=== PATIENT | male | born 1970 ===

== ENCOUNTER 2016-11-22 16:59 | Emergency (ER) | payer SELFPAY ==
[2016-11-22 17:14] VITALS: BP 126/85
--- NOTE | 2016-11-22 17:58 | UC ---
Skin Complaint HPI - HPI Summary HPI Summary: 46 male presents with complaints of left great toe pain, warmth, redness and discharge that began one weekend and has progressively worsened. Patient states he was cutting his toenail and ripped some skin off alone with it and since has had increasing discomfort. Patient thinks it is infected. He admits to a purulent discharge. He has DM and knows he is susceptible to infections. He has been soaking in Epsom salt which does give him relief. Has also tried applying neosporin to the area. Pain worsens when wearing tight shoes. Describes pain as throbbing. No other complaints at this time. No recent trauma or injury. Denies hx of gout or septic arthritis. Denies fever/chills that he is aware of. 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, neosporin Associated Signs & Symptoms: Positive: Negative Related History: Diabetes - Allergy/Home Medications Allergies/Adverse Reactions: Allergies Allergy/AdvReac Type Severity Reaction Status Date / Time Penicillins Allergy Unknown Verified 11/22/16 17:15 Reaction Details Review of Systems Constitutional: Negative Skin: Other - swelling, redness, warmth and tenderness to left great toe Respiratory: Negative Cardiovascular: Negative Gastrointestinal: Negative Genitourinary: Negative Motor: Negative Neurovascular: Negative Musculoskeletal: Negative Neurological: Negative All Other Systems Reviewed And Are Negative: Yes PMH/Surg Hx/FS Hx/Imm Hx Endocrine History Of: Reports: Diabetes Cardiovascular History Of: Denies: Hypertension Respiratory History Of: Denies: Asthma Psychological History Of: Denies: Anxiety - Surgical History Surgical History: None - Family History Known Family History: Positive: Diabetes - Social History Alcohol Use: Rare Substance Use Type: None Smoking Status (MU): Former Smoker When Did the Patient Quit Smoking/Using Tobacco: 2005 Physical Exam Triage Information Reviewed: Yes Appearance: Well-Appearing, No Pain Distress, Well-Nourished Vital Signs: Initial Vital Signs Temp 99.1 F 11/22/16 17:09 Pulse 95 11/22/16 17:09 Resp 16 11/22/16 17:09 BP 126/85 11/22/16 17:09 Pulse Ox 97 11/22/16 17:09 Vital Signs Reviewed: Yes Eyes: Positive: Conjunctiva Clear ENT: Positive: Normal ENT inspection, Hearing grossly normal Neck: Positive: Supple, Nontender, No Lymphadenopathy Respiratory: Positive: Chest non-tender, Lungs clear, Normal breath sounds Cardiovascular: Positive: RRR, No Murmur, Pulses Normal - 2+ pedal bilaterally, Brisk Capillary Refill Musculoskeletal: Positive: Strength Intact, ROM Intact, Edema @ - minimal at left great toe when compared to right great toe Neurological Exam: Normal Neurological: Positive: Alert - sensation intact Psychological Exam: Normal Skin: Positive: Other - erythematous, warm left great toe. non-raised. openwound noted on inner side of toe lateral to toenail. no current discharge, or active bleeding. unable to cutlure. appears to be a cellulits. without streaking and spread of erythema to foot or surround toes. tender to palpation. Course/Dx - Course Course Of Treatment: Unable to culture as there was no discharge at this time. Patient did an Epsom salt soak prior to arrival. Patient admits to purulent discharge at times that is relieved after epsom salt soaks. Denies any history of MRSA. Is a diabetic increasing risk of MRSA. Patient started on Bactrim for diagnosis of cellulits due to LEYLA and HPI. Does not appear to be goat flare at this time. Educated on worsening signs and symptoms to be aware of. Return if symptoms persist. Continue Epsom salt soaks. Keep clean and dry. Follow up. - Differential Diagnoses - Skin Complaint Differential Diagnoses: Cellulitis, Contact Dermatitis, MRSA, Tinea, Urticaria, Viral Exanthem, Other - Gout - Diagnoses Provider Diagnoses: Cellulitis- left great big toe Discharge - Discharge Plan Condition: Stable Disposition: HOME Prescriptions: Sulfamethox/Trimethoprim DS* [Bactrim DS 800/160 TAB*] 1 tab PO BID #14 tab Patient Education Materials: Cellulitis (ED) Forms: *Work Release Referrals: No Primary Care Phys,NOPCP [Primary Care Provider] - [facility] [Outside] Additional Instructions: Take prescribed antibiotic as directed until entire dose is finished. Continue Epsom salt soaks multiple times daily. Keep foot clean and dry. You may use Neosporin on area as desired. Do not cover Wear comfortable shoes that allow air to get to toe. If your symptoms persist or worsen please seek medical attention promptly.
== END 2016-11-22 18:06 | disposition home or self-care (01) ==
LOC: UCCORT 16:59
DX: L03.032 Cellulitis of left toe (principal); E11.9 Type 2 diabetes mellitus without complications; Z87.891 Personal history of nicotine dependence; Z88.0 Allergy status to penicillin
CPT/HCPCS: 99202; G0463